=== PATIENT | female | born 1985 | race Asian ===

== ENCOUNTER 2025-05-30 12:22 | Emergency (ER) | payer BC ==
[2025-05-30 12:30] VITALS: BMI 26.5
[2025-05-30 13:14] LABS: EPI CELLS 20 /uL (0-25.1); HYALINE CASTS 1 /uL (0-3.1); URINE APPEARANCE TURBID; URINE BACTERIA 1612 /uL (0-1359); URINE BILIRUBIN NEGATIVE (NEGATIVE); URINE COLOR DK YELLOW; URINE GLUCOSE (UA) NEGATIVE (NEGATIVE); URINE KETONE TRACE (NEGATIVE); URINE LEUK ESTERASE 3+ (NEGATIVE); URINE NITRITE NEGATIVE (NEGATIVE); URINE PROTEIN 2+ (NEGATIVE); URINE UROBILINOGEN 1.0 mg/dL (0.2-1.0); URINE WBC 8595 /uL (0-25.8)
[2025-05-30 13:25] LABS: MCHC 33.2 g/dl (32.2-35.5); MEAN CELL VOLUME 86.0 fl (79.4-94.8); MEAN PLT VOLUME 9.2 fl (9.4-12.3); RDW 11.6 % (12.2-17.1)
[2025-05-30 13:43] LABS: URINE RBC 94'6 /uL (0-23.9)
[2025-05-30 14:17] LABS: GLUCOSE,RANDOM 211.0 mg/dL (74-106)
[2025-05-30 14:18] LABS: TOT PROT 8.3 g/dl (6.4-8.2)
[2025-05-30 14:19] LABS: CO2 19.0 mmol/L (21-32)
[2025-05-30 14:20] LABS: ALK PHOS 80.0 U/L (40-150)
[2025-05-30 14:23] LABS: CREATININE 1.0 mg/dL (0.55-1.3); SGOT/AST 20.0 U/L (5-34); SGPT/ALT 26.0 U/L (0-55)
[2025-05-30] MEDS ORDERED: SULFAMETHOXAZOLE/TRIMETHOPRIM 800MG/160MG D.S. TABLET ONE (14:49)
[2025-05-30] MEDS ORDERED: KETOROLAC TROMETHAMINE 15 MG/ML VIAL ONE (14:49)
[2025-05-30] MEDS: KETOROLAC TROMETHAMINE 15 MG/ML VIAL IVPUSH ONE (14:55)
[2025-05-30] MEDS: SULFAMETHOXAZOLE/TRIMETHOPRIM 800MG/160MG D.S. TABLET PO ONE (14:56)
[2025-05-30 15:11] VITALS: BP 122/60; RESP 19
[2025-05-30] MEDS ORDERED: ACETAMINOPHEN 325 MG TABLET (FP) ONE (15:24)
[2025-05-30] MEDS: ACETAMINOPHEN 500 MG TABLET (FP) PO ONE (15:25)
[2025-05-30 15:45] LABS: HIV INTERPRETATION NEGATIVE (NEGATIVE)
[2025-05-30 15:48] LABS: HCV DIAGNOSTIC IN-HOUSE W/RFLX NON-REACTIVE (NONREACTIVE)
[2025-05-30 16:09] VITALS: TEMP 99.1
[2025-05-30 16:13] VITALS: PULSE 95
== END 2025-05-30 16:19 | disposition home or self-care (01) ==
LOC: JER 12:22
PROC: 3E0333Z Introduction of Anti-inflammatory into Peripheral Vein, Percutaneous Approach (ICD-10-PCS; principal; 2025-05-30)
DX: N39.0 Urinary tract infection, site not specified (principal); R30.0 Dysuria; R50.9 Fever, unspecified; R00.0 Tachycardia, unspecified; D72.829 Elevated white blood cell count, unspecified
CPT/HCPCS: 36415; 80053; 81003; 84703; 85025; 86803; 87086; 87389; 99285-25